=== PATIENT | female | born 1985 | race Caucasian/White ===

== ENCOUNTER 2020-12-25 16:25 | Outpatient (CLI) | payer OTHER, SELFPAY ==
[2019-04-24 13:17] VITALS: BMI 36.2
[2020-12-25 16:27] VITALS: BMI 33.7
[2020-12-25 16:38] VITALS: BP 134/77; PULSE 91; O2SAT 96
[2020-12-25 16:39] VITALS: TEMP 37.3
[2020-12-25 17:09] LABS: ROM Internal Control Test YES-OK TO RESULT pt. (Internal QC); ROM Patient Test Negative (Negative)
--- NOTE | 2020-12-28 12:45 | OB.TRI.PN ---
Progress Notes Date of Service: 12/25/20 Progress Note: presented to labor and delivery at 24 w 1d for possible rupture of membranes. Denies any vaginal bleeding or contractions. O: FHR:155, minimal variability, variable decel, reactive. Appropriate for gestational age TOCO: no contractions ROM plus negative A: Vaginal Discharge P: 1) No ROM 2) PTL precautions 3) D/C home Laboratory Studies: Laboratory Tests 12/25/20 Range/Units 16:40 Vag Amniotic Fld Detect Negative (Negative)
== END 2020-12-25 17:25 | disposition home or self-care (01) ==
LOC: WPOUT 16:26 → WP 16:27
PROVIDERS: PCP Internal Medicine; Referring Provider Advanced Practice Midwife; Visit Provider Advanced Practice Midwife
DX: Z03.71 Encounter for suspected problem with amniotic cavity and membrane ruled out (principal)
CPT/HCPCS: 59025; 59050; 84112; 99218; G0378

== ENCOUNTER 2021-02-05 08:00 | Outpatient (RCR) | payer OTHER, SELFPAY | END 2021-02-06 23:59 | LOC: DC 08:00 | PROVIDERS: PCP Internal Medicine; Visit Provider Obstetrics & Gynecology | DX: O24.410 Gestational diabetes mellitus in pregnancy, diet controlled (principal); Z3A.00 Weeks of gestation of pregnancy not specified | CPT/HCPCS: 97802; G0108 ==

== ENCOUNTER 2021-04-09 08:45 | Inpatient (IN) | payer OTHER, SELFPAY ==
--- NOTE | 2021-04-08 15:47 | HP.PCM_ITS ---
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 Signed Encounter Date: 03/24/2021 Expand AllCollapse All Expand All by Default Hide copied text Hover for details Pre-Op History and Physical ? HPI: The patient is a 35 year old female presenting for pre-operative visit. She is scheduled for , for BREECH, AMA, 39 weeks gestation on 04/09/21. Procedure discussed along with risks, benefits and complications. Other alternatives discussed for management. Consent form signed? Yes. ? ? PAST MEDICAL HISTORY PAST MEDICAL HISTORY Diagnosis Date ? Abnormal Pap smear of cervix ? ? Gestational diabetes mellitus, class A1 01/20/2021 ? History of abnormal Pap smear ? ? IBD (inflammatory bowel disease) ? ? ? PAST SURGICAL HISTORY PAST SURGICAL HISTORY Procedure Laterality Date ? COLONOSCOPY ? 07/11/13 ? ENDOSCOPY PROC ? 07/25/13 ? INSERT IUD ? 2013 ? mirena ? LASER BENIGN LESIONS VULVA ? 2013 ? OFFICE LEEP ? 06/30/11 ? VAGINOSCOPY ? 06/20/12 ? ? ? CURRENT MEDICATIONS Current Outpatient Medications Medication Sig Dispense Refill ? blood sugar diagnostic test strip 1 Strip four times daily. Use as instructed 120 Strip 9 ? Lancets lancets 1 Each four times daily. Use as instructed 120 Each 9 ? Urine Glucose-Ketones Test (KETO-DIASTIX) strp 1 Strip four times daily. 120 Strip 9 ? aspirin, enteric coated (ASPIRIN, ENTERIC COATED) 81 mg EC tablet Take 81 mg by mouth once daily. ? ? ? Smrqcgzr-Ur-Lth-Fe-FA ( VITAMIN) tab Take 1 tablet by mouth. ? ? ? No current facility-administered medications for this visit. ? ? ALLERGIES: Augmentin [Amoxicillin-Pot Clavulanate] ? PERSONAL HISTORY: SOCIAL HISTORY Social History ? Tobacco Use ? Smoking status: Never Smoker ? Smokeless tobacco: Never Used Vaping Use ? Vaping Use: Never used Substance Use Topics ? Alcohol use: Not Currently ? Drug use: No ? FAMILY HISTORY: FAMILY HISTORY FAMILY HISTORY Problem Relation Age of Onset ? Hypertension Mother ? ? Heart Father ? ? MYOCARDIAL INFARCTION ? Hypertension Father ? ? other (HYPERCHOLESTEROL) Father ? ? other (Ewings sarcoma) Brother ? ? Cancer Maternal Grandmother ? ? UTERINE CANCER ? Diabetes Maternal Grandmother ? ? other (blood clots) Maternal Grandmother ? ? other (CVA) Paternal Grandfather ? ? No Known Problems Maternal Grandfather ? ? No Known Problems Paternal Grandmother ? ? ? REVIEW OF SYMPTOMS: negative except as noted above PHYSICAL EXAMINATION: ? VITALS: Blood pressure 115/83, weight 192 lb (87.1 kg), last menstrual period 07/09/2020. ? GENERAL: The patient is well nourished, well hydrated in no acute distress. , The patient is oriented to time, place, and person. NECK: full range of motion GENITALIA: normal ABD: soft, gravid, non tender. FHR 120bpm ? IMPRESSION: @ 39 weeks EDC 04/15/21 - BREECH, AMA, GDMA1 ? PLAN: Declines ECV, planning for primary cs ? Pt has been counseled on risks/benefits and alternatives of surgery including but not limited to anesthesia, bleeding, infection, injury to pelvic structures including bowel, bladder, ureters and vessels. Pt wishes to proceed with surgery at this time. ? Will confirm breech day of surgery. ? ? I have reviewed and updated past medical and surgical history, medications and allergies Daya Santamaria MD ?2:41 PM
[2021-04-09] VITALS (16 sets, daily range): BP systolic 107–136; BP diastolic 57–85; PULSE 47–75; RESP 10–18; TEMP 36.1–37.1; O2SAT 94–99; BMI 34.3
[2021-04-09 09:45] LABS: Absolute Lymphocyte Count 1.33 X10^3/uL (0.83-4.51); Absolute Neutrophil Count 6.5 X10^3/uL (2.0-7.7); Basophil# 0.02 X10^3/uL; Basophil% 0.2 % (0-1); Eosinophil# 0.07 X10^3/uL; Eosinophils% 0.8 % (0-5); Hemoglobin 12.8 g/dL (12.0-15.0); Lymphocyte # 1.33 X10^3/ul (0.83-4.51); Lymphocyte % 15.6 % (19-41); Mean Corp Hgb Conc 33.7 g/dL (32-36); Mean Corpuscular Hgb 29.1 pg (27.0-32.0); Mean Corpuscular Volume 86.4 fL (81-99); Mean Platelet Vol. 10.4 fl (6.2-12.0); Monocyte# 0.54 X10^3/uL; Monocyte% 6.3 % (0-10); NRBC Flagged by Analyzer 0 % (0-5); Neutrophil # 6.52 X10^3/uL (2.7-7.7); Neutrophil % 76.6 % (47-70); Platelet Count 183 K/mm3 (150-450); RBC Distribution Width CV 13.3 % (11.6-14.6); RBC Distribution Width SD 41.3 fl (35.1-43.9); White Blood Count 8.5 K/mm3 (4.4-11.0)
[2021-04-09] MEDS: Lactated Ringers 1,000 ML 999 ML IV (09:45)
[2021-04-09 09:46] LABS: Bedside Glucose 77 mg/dL (70-110)
[2021-04-09] MEDS: Acetaminophen 500 MG Tablet 1000 MG PO ×3 (10:22→22:56)
[2021-04-09] MEDS: Lactated Ringers 1,000 ML 150 ML IV ×2 (10:24→15:40)
[2021-04-09] MEDS: Sodium Citrate/Citric Acid 30 ML UDC PO (11:15)
[2021-04-09] MEDS: Cefazolin 2 GM in 0.9% Normal Saline 100 ML IV (11:20)
--- NOTE | 2021-04-09 12:00 | EX.PCM.OBRPT ---
Assessment & Plan (1) Breech delivery: (2) Delivery by section: (3) Gestational diabetes: (4) AMA (advanced maternal age) multigravida 35+: Maternal Data Information Final VICK: 04/15/21 Final VICK Source: US <20 weeks Gestational age: 39.0 Details Operative Information Date of Procedure: 04/09/21 Pre-Operative Diagnosis: term gestation, breech, ama, gdma1 Post-Operative Diagnosis: same, live female infant Indications for : Breech Classification: Scheduled Procedure Type: low transverse technical support professional #1: Leonora Ford Type of Anesthesia: Spinal Special Medications: duramorph Antibiotic Given: Ancef 2 grams IV x1 Drain: Lanza to straight drain Estimated Blood Loss: 600 Fluids Replaced: 1500 Procedure Start Time: 11:35 Procedure Stop Time: 12:08 Time of Delivery: 11:40 Findings Description of Procedure: After informed consent was obtained the patient was taken the operating room she was given spinal anesthesia. She was then placed in the supine position. She was prepped and draped in the normal sterile fashion. Anesthesia was found to be adequate. At this time a Pfannenstiel skin incision was made with a knife was carried down to the underlying layer of the fascia. The fascial incision was then extended laterally using curved Ford scissor. Tensions was then turned to the superior aspect of the fascial edge was grasped with 2 straight [place] clamps tented up and the rectus muscle dissected off sharply using curved Ford scissor. Attention was then turned to the inferior aspect where again Corby clamps were placed in the rectus muscles were tented up and the fascia was dissected off sharply using the curved Ford scissor. Rectus muscles were then in the midline bluntly and peritoneum was entered bluntly. Gentle opposing traction was placed. At this time the vesicouterine peritoneum was identified. Scalpel was used to make a uterine incision in a low transverse fashion. The uterus was then entered bluntly gentle opposing traction was placed to extend this incision. Membranes were ruptured clear. Infant's buttocks was brought to the uterine incision was delivered atraumatically followed by rest of body and head- delivered atraumatically. delayed cord clamping performed. Cord was clamped and cut infant was handed to the waiting nursery team. The Placenta was removed from the uterus. The uterus was then removed from the abdominal cavity. The uterus was cleared of all clots and debris using a lap. At this time the uterine incision was reapproximated using #1 Vicryl in a running locked fashion followed by a second layer using 1-0 viryl in a figure of eight fashion. Hemostasis was appreciated. Posterior cul-de-sac was then cleared of all clots and debris. Uterus was placed back in the abdominal cavity. Gutters were cleared of all clots and debris. Uterine incision was reevaluated and noted to be of excellent hemostasis. eileen placed. At this time the peritoneum and muscle were grasped with Kellys reapproximated using #2 Vicryl suture in a running fashion. Fascia was then reapproximated using #1 Vicryl in a running fashion. Subcu layer was reapproximated with #2 0 plain gut suture in an interrupted fashion. Subcu layer was closed using 4-0 Monocryl in a subcu fashion. Dry sterile dressing was applied. Instrument lap needle count correct ?2. Anticipated normal postoperative course. Presentation: Positive for Complete Breech Amniotic Membrane Rupture Type: Artificial Amniotic Fluid Description: Clear Placental Delivery Description: Manual Removal Placenta Disposition: [facility] Specimen(s) Sent to Pathology: none Cord Vessel Description: 3 Vessels Cord Entanglement: Around neck x 1, loose Nuchal Cord Compression: Without compression Infant A Gender: Female (1 minute): 8 (5 minute): 9 Delayed Cord Clamping: Yes Complications Risks of Surgery Discussed w/Patient: Bleeding, Anesthesia Risks, Infection, Injury to surrounding structure(s) including bowel and bladder and Availability of other non-permanent control options Complications: none Admit VTE Documentation VTE Present on Admission: Yes VTE Mechan Device Prophylaxis: SCD's VTE Pharm Prophylaxis Ordered: No Reason Prophylaxis Not Ordered: Procedure Not Indicated
[2021-04-09] MEDS: Oxytocin 30 units/NS 500 ml 30 UNITS/500 ML IV.SOLN 167 UNITS IV (12:30)
[2021-04-09] MEDS: Ketorolac 30 MG/ML Syringe IV ×2 (13:15→19:29)
[2021-04-09] MEDS: 0.9% Saline Lock 10 ML Syringe IV (19:29)
[2021-04-10] VITALS (7 sets, daily range): BP systolic 108–130; BP diastolic 65–81; PULSE 50–82; RESP 16–18; TEMP 36.4–36.9; O2SAT 96–99
[2021-04-10] MEDS: Ketorolac 30 MG/ML Syringe IV ×2 (00:36→06:31)
[2021-04-10] MEDS: Acetaminophen 500 MG Tablet 1000 MG PO ×4 (04:45→23:07)
[2021-04-10 05:06] LABS: Bedside Glucose 68 mg/dL (70-110)
[2021-04-10 05:15] LABS: Hematocrit 33.9 % (37-47); Hemoglobin 11.2 g/dL (12.0-15.0); Mean Corpuscular Volume 87.8 fL (81-99); Mean Platelet Vol. 10.8 fl (6.2-12.0); Platelet Count 148 K/mm3 (150-450); RBC Distribution Width CV 13.3 % (11.6-14.6); RBC Distribution Width SD 42.6 fl (35.1-43.9); Red Blood Count 3.86 M/mm3 (4.2-5.4); White Blood Count 9.9 K/mm3 (4.4-11.0)
[2021-04-10 05:31] LABS: Bedside Glucose 85 mg/dL (70-110)
--- NOTE | 2021-04-10 08:30 | PN.OBGYN_ITS ---
Subjective Subjective patient seen at bedside, doing well. Patient reports good pain control. lochia mild. breast feeding. Tolerating regular diet. Passing flatus. Objective Data Objective Data Vital Signs: Vital Signs Temp Pulse Resp BP Pulse Ox 97.5 F L 68 16 111/78 97 04/10/21 04:48 04/10/21 04:48 04/10/21 04:48 04/10/21 04:48 04/10/21 04:48 Oxygen Delivery Method Room Air Weight: 88 kg Body Mass Index (BMI) 34.3 Intake & Output: Intake and Output for Last 24 Hours 04/08/21 04/09/21 04/10/21 23:59 23:59 23:59 Intake Total 2425 / 2425 Output Total 1050 / 1050 1500 / 1500 Balance 1375 / 1375 -1500 / -1500 Lab / Micro Data Result Diagrams: 04/10/21 04:45 Labs: Laboratory Results - last 24 hr 04/09/21 04/09/21 04/09/21 09:25 09:25 09:41 WBC 8.5 RBC 4.40 Hgb 12.8 Hct 38.0 MCV 86.4 MCH 29.1 MCHC 33.7 RDW Std Deviation 41.3 RDW Coeff of Arlet 13.3 Plt Count 183 MPV 10.4 Immature Gran % (Auto) 0.500 Neut % (Auto) 76.6 H Lymph % (Auto) 15.6 L Charlotte % (Auto) 6.3 Eos % (Auto) 0.8 Baso % (Auto) 0.2 Absolute Neuts (auto) 6.5 Absolute Lymphs (auto) 1.33 Nucleated RBC % 0 POC Glucose 77 Blood Type O POSITIVE Antibody Screen NEGATIVE 04/10/21 04/10/21 04/10/21 04:45 04:57 05:26 WBC 9.9 RBC 3.86 L Hgb 11.2 L Hct 33.9 L MCV 87.8 MCH 29.0 MCHC 33.0 RDW Std Deviation 42.6 RDW Coeff of Arlet 13.3 Plt Count 148 L MPV 10.8 Immature Gran % (Auto) Neut % (Auto) Lymph % (Auto) Charlotte % (Auto) Eos % (Auto) Baso % (Auto) Absolute Neuts (auto) Absolute Lymphs (auto) Nucleated RBC % POC Glucose 68 L 85 Blood Type Antibody Screen Physical Exam Narrative dressing dry and intact Const alert and oriented x3 General Appearance: cooperative HEENT normocephalic Neck General: normal visual inspection GI soft to palpation and non-distended GI Narrative: Fundus firm Extremity normal to inspection and no calf tenderness Skin no rashes or lesions noted Neuro oriented x3 and CN's II-XII intact bilaterally Psych mental status grossly normal Assessment & Plan (1) Delivery by section: PLAN: POD#1 , Doing well Routine care pain mgmt monitor VS ambulation considering dc home today if no issues with breast feeding.
--- NOTE | 2021-04-10 08:33 | PCM.DC ---
Discharge Instructions Diet Discharge Diet: No restrictions Activity May resume sexual activity in: 6-8 weeks Lifting Restrictions: 25 Dressing / Incision Call your doctor if your incision/area has: Continuous Slow Oozing, Sudden Increased Bleeding, Increased Pain/ Swelling, Increased Redness, Foul Smelling Discharge and Swelling at the incision site Call your doctor if you observe: Fever of 101 or Higher, Inability to urinate, Using more than 1 pad per hour and Uncontrolled pain Additional Dressing/Incision Instructions:: remove dressing at 7 days post op- if it becomes saturated prior to that time you may remove it. Let soap and water run over incision sites and dab dry. keep incision clean and dry. Follow Up Care Please Follow Up With: Daya Soriano MD When: 1-2 weeks post of incision check and again at 6 weeks post . [phone] Test Results: Test results from this visit will be discussed in further detail at your follow-up appointment, if applicable. Discharge Plan Admission Admit Date/Time: 04/09/21 08:45 Attending Provider: Daya Soriano Primary Care Provider: Care Physician,No Primary Instructions Forms: Information Discharge Orders/Prescriptions Prescriptions: New sennosides-docusate sodium [Stool Softener-Stimulant Laxat] 8.6-50 mg Tablet 1 tab PO DAILY 7 Days Qty: 7 RF: 0 acetaminophen 500 mg Tablet 1,000 mg PO Q6H Qty: 0 RF: 0 ibuprofen 600 mg Tablet 600 mg PO Q6H Qty: 0 RF: 0 simethicone [Mi-Acid Gas Relief(simethicon)] 80 mg Tablet,Chewable 80 mg PO PCHS PRN (Reason: Indigestion/stomach pain) Qty: 20 RF: 0 oxycodone 5 mg Tablet 5 - 10 mg PO Q4H PRN PRN (Reason: Pain Score 4-10) 7 Days Qty: 10 RF: 0 Continued Prenatabs FA 1 tab DAILY RF: 0 Discontinued aspirin 81 MG tablet,chewable 81 mg PO DAILY RF: 0 Referrals / Follow Up: Care Physician,No Primary [Primary Care Provider] - Disposition Disposition (needs filled in before D/C Order can be placed): Home, Self Care
--- NOTE | 2021-04-10 08:39 | PCM.DC.BLA ---
Discharge Summary Date of Admission: 04/09/21 Date of Discharge: 04/10/21 Summary: Patient was admitted to [facility] 04/09/2021 for a scheduled section for breech presentation at 39 weeks gestation. Underwent a primary low-transverse section without complication. Had a stable postoperative course and was discharged home on postoperative day #1. Meaningful Use Info Meaningful Use Diagnoses (Choose all that apply): None applicable Discharge Plan Admission Admit Date/Time: 04/09/21 08:45 Attending Provider: Daya Soriano Primary Care Provider: Sushma Hernandes,Tamiko Primary Instructions Forms: Information Discharge Orders/Prescriptions Prescriptions: New sennosides-docusate sodium [Stool Softener-Stimulant Laxat] 8.6-50 mg Tablet 1 tab PO DAILY 7 Days Qty: 7 RF: 0 acetaminophen 500 mg Tablet 1,000 mg PO Q6H Qty: 0 RF: 0 ibuprofen 600 mg Tablet 600 mg PO Q6H Qty: 0 RF: 0 simethicone [Mi-Acid Gas Relief(simethicon)] 80 mg Tablet,Chewable 80 mg PO PCHS PRN (Reason: Indigestion/stomach pain) Qty: 20 RF: 0 oxycodone 5 mg Tablet 5 - 10 mg PO Q4H PRN PRN (Reason: Pain Score 4-10) 7 Days Qty: 10 RF: 0 Continued Prenatabs FA 1 tab DAILY RF: 0 Discontinued aspirin 81 MG tablet,chewable 81 mg PO DAILY RF: 0 Referrals / Follow Up: Care Physician,No Primary [Primary Care Provider] - Disposition Disposition (needs filled in before D/C Order can be placed): Home, Self Care
[2021-04-10] MEDS: Senna/Docusate Sodium 1 Tablet PO (11:24)
[2021-04-10] MEDS: Ibuprofen 600 MG Tablet PO ×2 (14:11→19:46)
[2021-04-11] MEDS: Ibuprofen 600 MG Tablet PO ×3 (01:40→13:36)
[2021-04-11 02:45] VITALS: BP 130/81; PULSE 81; RESP 18; TEMP 36.7; O2SAT 96
[2021-04-11] MEDS: Acetaminophen 500 MG Tablet 1000 MG PO ×2 (05:02→11:20)
--- NOTE | 2021-04-11 07:46 | PCM.PN.OB ---
Subjective Subjective patient seen at bedside, doing well. Patient reports good pain control. lochia mild. breast feeding Objective Data Objective Data Vital Signs: Vital Signs Temp Pulse Resp BP Pulse Ox 98.1 F 81 18 130/81 H 96 04/11/21 02:45 04/11/21 02:45 04/11/21 02:45 04/11/21 02:45 04/11/21 02:45 Oxygen Delivery Method Room Air Weight: 88 kg Body Mass Index (BMI) 34.3 Intake & Output: Intake and Output for Last 24 Hours 04/09/21 04/10/21 04/11/21 23:59 23:59 23:59 Intake Total 2425 / 2425 Output Total 1050 / 1050 1500 / 1500 Balance 1375 / 1375 -1500 / -1500 Lab / Micro Data Result Diagrams: 04/10/21 04:45 Physical Exam Const alert and oriented x3 General Appearance: cooperative HEENT normocephalic Neck General: normal visual inspection GI soft to palpation and non-distended GI Narrative: Fundus firm Extremity normal to inspection and no calf tenderness Skin no rashes or lesions noted Neuro oriented x3 and CN's II-XII intact bilaterally Psych mental status grossly normal Assessment & Plan (1) Delivery by section: PLAN: POD#2 , Doing well Routine care pain mgmt monitor VS ambulation dc home today
[2021-04-11 10:35] VITALS: BP 138/76; PULSE 74; RESP 16; TEMP 36.6; O2SAT 98
[2021-04-11] MEDS: Senna/Docusate Sodium 1 Tablet PO (11:20)
== END 2021-04-11 14:00 | disposition home or self-care (01) | DRG 788 ==
PROVIDERS: Admitting Provider Obstetrics & Gynecology; Visit Provider Obstetrics & Gynecology
PROC: 10D00Z1 Extraction of Products of Conception, Low, Open Approach (ICD-10-PCS; CPT 59514; principal; 2021-04-09 11:15)
DX: O32.1XX0 Maternal care for breech presentation, not applicable or unspecified (principal); O24.420 Gestational diabetes mellitus in childbirth, diet controlled; O69.81X0 Labor and delivery complicated by cord around neck, without compression, not applicable or unspecified; Z79.82 Long term (current) use of aspirin; Z3A.39 39 weeks gestation of pregnancy; Z37.0 Single live birth
CPT/HCPCS: 82962; 85025; 85027; 86850; 86900; 86901; 99218; 99251; J7120; A4216; G0378; G0463

== ENCOUNTER 2022-03-17 15:55 | Emergency (ER) | payer OTHER, SELFPAY ==
[2022-03-17 15:56] VITALS: BP 121/86; PULSE 86; RESP 16; TEMP 36.8; O2SAT 97; BMI 29.7
--- NOTE | 2022-03-17 16:09 | EDS_ITS ---
HPI History of Present Illness Chief Complaint: Bite Informant: patient Onset/Context/Timing Onset: Days Current Severity: Mild Maximum Severity: Mild Narrative Narrative: Patient presents after bat encounter. Patient states she was moving a box 2 days ago when a bat flew out. She did feel something hit the end of her thumb. She was wearing latex gloves at the time and there was a small puncture wound in the glove. There was an abrasion on her thumb. She [facility] at [facility] today. Patient has had previous immunoglobulin and vaccine series. They spoke with the [facility] department who advised that she still needed to have the vaccine. She will require shots on day 0 and 3 only because of her previous vaccination. [facility] Medical History Animal bite of right thumb Home Medications Prenatabs FA 1 tab DAILY 12/25/20 [History Last Taken 04/07/21] acetaminophen 1,000 mg PO Q6H #0 tab 04/10/21 [Rx Last Taken Unknown] ibuprofen 600 mg PO Q6H #0 tab 04/10/21 [Rx Last Taken Unknown] oxycodone 5 - 10 mg PO Q4H PRN PRN 7 Days #10 tab 04/10/21 [Rx Last Taken Unknown] sennosides-docusate sodium [Stool Softener-Stimulant Laxat] 1 tab PO DAILY 7 Days #7 tab 04/10/21 [Rx Last Taken Unknown] simethicone [Mi-Acid Gas Relief(simethicon)] 80 mg PO PCHS PRN #20 tab 04/10/21 [Rx Last Taken Unknown] clindamycin HCl 300 mg capsule 300 mg PO TID #30 cap 03/17/22 [Rx Last Taken Unknown] rabies vacc,human diploid (PF) 2.5 unit intramuscular solution 1 ml IM .x4 #4 ea 03/17/22 [Rx Last Taken Unknown] Allergy/AdvReac Type Severity Reaction Status Date / Time amoxicillin [From Augmentin] Allergy Severe Bloody Verified 03/17/22 15:56 vomiting clavulanic acid Allergy Severe Bloody Verified 03/17/22 15:56 [From Augmentin] vomiting Family History Other Cancer Social History Smoking Status: Never smoker alcohol intake: never ROS ROS ED Constitutional Constitutional ED: Denies chills or fever(s) Eyes Eyes: Denies blurry vision ENT ENT ED: Denies ear pain or rhinorrhea Cardiovascular Cardiovascular: Denies chest pain or palpitations Respiratory/Chest Respiratory/Chest: Denies cough or dyspnea Gastrointestinal Gastrointestinal: Denies abdominal pain, diarrhea or vomiting Integumentary Reports Abrasions Neurologic Neurologic: Denies headache(s), paresthesias or weakness Allergic/Immunologic Allergic/Immunologic ED: Denies urticaria EXAM Physical Exam Const Vital Signs: 03/17/22 15:56 Temperature 98.3 F Temperature Source Temporal Pulse Rate 86 Respiratory Rate 16 Blood Pressure 121/86 H Blood Pressure Mean 97 Pulse Ox 97 Oxygen Delivery Method Room Air Positive well nourished and well developed General Appearance ED: well developed HEENT Reports moist mucous membranes Eyes PERRL and EOMs intact bilaterally Neck no lymphadenopathy and supple Chest Wall inspection of chest normal and palpation of chest normal Resp normal respiratory effort and clear to auscultation bilaterally Cardio regular rate and regular rhythm GI non-tender Palpation: soft Extremity Extremity Narrative: No visible abrasions on the hands at this time Neuro oriented x3 Sensorium / Orientation: alert Psych mental status grossly normal Skin no rashes or lesions noted MDM [facility] Treatment and Re-Evaluation Narrative: Patient will receive vaccine dose here. She will return on day 3 for her second dose. In light of her previous vaccination status this is all she will require. Discharge Plan Triage Chief Complaint: Bite ED Provider: Jes Carter Dx/Rx/DC Orders Clinical Impression: Need for rabies vaccination Instructions: Understanding Rabies Prescriptions: No Action clindamycin HCl 300 mg capsule 300 mg PO TID Qty: 30 RF: 0 rabies vacc,human diploid (PF) 2.5 unit recon soln 1 ml IM .x4 Qty: 4 RF: 0 Prenatabs FA 1 tab DAILY RF: 0 sennosides-docusate sodium [Stool Softener-Stimulant Laxat] 8.6-50 mg Tablet 1 tab PO DAILY 7 Days Qty: 7 RF: 0 acetaminophen 500 mg Tablet 1,000 mg PO Q6H Qty: 0 RF: 0 ibuprofen 600 mg Tablet 600 mg PO Q6H Qty: 0 RF: 0 simethicone [Mi-Acid Gas Relief(simethicon)] 80 mg Tablet,Chewable 80 mg PO PCHS PRN (Reason: Indigestion/stomach pain) Qty: 20 RF: 0 oxycodone 5 mg Tablet 5 - 10 mg PO Q4H PRN PRN (Reason: Pain Score 4-10) 7 Days Qty: 10 RF: 0 Primary Care Provider: Care Physician,No Primary Referrals: Care Physician,No Primary [Primary Care Provider] - Activity Restrictions/Additional Instructions: Please return on day 3 for your second vaccine dose. Disposition Disposition: Home, Self Care
[2022-03-17] MEDS: Rabies Vaccine,Human Diploid 2.5 UNITS Vial IM (16:56)
== END 2022-03-17 17:35 | disposition home or self-care (01) ==
LOC: ED 16:18
PROVIDERS: Emergency Provider Emergency Medicine; Visit Provider Emergency Medicine
DX: S60.371A Other superficial bite of right thumb, initial encounter (principal); W55.81XA Bitten by other mammals, initial encounter; Z20.3 Contact with and (suspected) exposure to rabies
CPT/HCPCS: 90675; 96372; 99282

== ENCOUNTER 2022-03-20 13:15 | Outpatient (CLI) | payer OTHER, SELFPAY ==
[2022-03-20] MEDS: Rabies Vaccine,Human Diploid 2.5 UNITS Vial IM (13:41)
[2022-03-20 13:43] VITALS: BP 127/79; PULSE 77; RESP 18; TEMP 37.2; O2SAT 97; BMI 31.1
== END 2022-03-20 14:03 | disposition home or self-care (01) ==
LOC: ED 14:04
DX: Z23 Encounter for immunization (principal)
CPT/HCPCS: 90675; 96372